=== PATIENT | female | born 2000 | race Caucasian/White ===

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

== ENCOUNTER 2022-03-22 21:23 | Emergency (ER) | payer SELFPAY ==
[~2022-03-22] VITALS: Ht 152.4 cm; Wt 52.2 kg
[2022-03-22 21:25] VITALS: BP 104/62
--- NOTE | 2022-03-22 22:30 | NUR ---
CALLED FOR LABS TO BE DRAWN, NO ANSWER
--- NOTE | 2022-03-22 22:45 | NUR ---
CALLED BY RADIOLOGY, NO ANSWER
--- NOTE | 2022-03-22 23:06 | NUR ---
CALLED PT IN LOBBY AND OUTSIDE. PT HAS LWBS
== END 2022-03-22 22:30 | disposition left against medical advice (07) ==
LOC: MED 21:23
DX: R10.31 Right lower quadrant pain (principal); Z53.21 Procedure and treatment not carried out due to patient leaving prior to being seen by health care provider
CPT/HCPCS: 81002; 81025

== ENCOUNTER 2022-04-25 23:17 | Emergency (ER) | payer SELFPAY ==
[~2022-04-25] VITALS: Ht 152.4 cm; Wt 53.1 kg
[2022-04-25 23:20] VITALS: BP 131/90
--- NOTE | 2022-04-25 23:23 | NUR ---
to lobby a/w bed ambulatory
--- NOTE | 2022-04-26 | NUR ---
SEEN AND EXAMINED BY MALLORY
--- NOTE | 2022-04-26 00:14 | NUR ---
PT TAKEN TO ER BED 9
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
--- NOTE | 2022-04-26 01:02 | NUR ---
RAD AT BEDSIDE
[2022-04-26 02:02] VITALS: BP 131/90
--- NOTE | 2022-04-26 02:02 | NUR ---
Patient discharged with v/s stable. Written and verbal after care instructions given and explained. Patient verbalized understanding. Ambulatory with steady gait. All questions addressed prior to discharge. Advised to follow up with PMD.
== END 2022-04-26 02:02 | disposition home or self-care (01) ==
LOC: MED 23:17
DX: S00.83XA Contusion of other part of head, initial encounter (principal); S80.01XA Contusion of right knee, initial encounter; S80.211A Abrasion, right knee, initial encounter; S80.212A Abrasion, left knee, initial encounter; Y35.813A Legal intervention involving manhandling, suspect injured, initial encounter; Y93.89 Activity, other specified; Y92.89 Other specified places as the place of occurrence of the external cause; Y99.8 Other external cause status
CPT/HCPCS: 70110; 81002; 81025; 99283; Q0092